=== PATIENT | male | born 1980 | race Caucasian/White ===

== ENCOUNTER 2016-11-17 21:20 | Emergency (ER) | payer SELFPAY ==
[2016-11-17] MEDS ORDERED: Ondansetron INJ* 2 MG/ML VIAL IV ONE ×2 (22:01→23:59)
[2016-11-17] MEDS ORDERED: NS 0.9% 1000 ML* 2,000 ML IV ONE (22:01)
[2016-11-17] MEDS ORDERED: NS 0.9% 1000 ML* 1,000 ML IV SCH (22:15)
[2016-11-17 22:34] VITALS: BP 139/97
[2016-11-17 22:41] LABS: Hematocrit 51 % (42-52); Hemoglobin 17.6 g/dl (14.0-18.0); Mean Corpuscular HGB Conc 35 g/dl (31-36); Mean Corpuscular Hemoglobin 30 pg (27-31); Mean Corpuscular Volume 88 fL (80-94); Mean Platelet Volume 8 um3 (7.4-10.4); Red Blood Count 5.82 10^6/ul (4.0-5.4); Red Cell Distribution Width 13 % (10.5-15); White Blood Count 12.3 10^3/ul (3.5-10.8)
[2016-11-17 22:54] LABS: ALT 52 U/L (7-52); AST 116 U/L (13-39); Albumin 5.2 g/dL (3.2-5.2); Alkaline Phosphatase 75 U/L (34-104); Anion Gap 16 mmol/L (2-11); BUN/Creatinine Ratio 35.7 (8-20); Blood Urea Nitrogen 41 mg/dL (6-24); CO2 Carbon Dioxide 22 mmol/L (22-32); Calcium 10.9 mg/dL (8.6-10.3); Chloride 94 mmol/L (101-111); EGFR Non-African American 71.6 (>60); Globulin 4.2 g/dL (2-4); Glucose 143 mg/dL (70-100); Lipase < 10 U/L (11.0-82.0); Potassium 4.1 mmol/L (3.5-5.0); Sodium 132 mmol/L (133-145); Total Protein 9.4 g/dL (6.4-8.9)
[2016-11-17 22:56] LABS: Troponin I 0.01 ng/mL (<0.04)
[2016-11-17] MEDS ORDERED: Iohexol 300* (CONTRAST) 10 ML SDV IV ONE (22:56)
[2016-11-18] MEDS ORDERED: Pantoprazole TAB (NF) 40 MG TAB PO ONE (00:36)
[2016-11-18] MEDS ORDERED: Omeprazole CAP* 20 MG PO ONE ×2 (01:05→02:00)
--- NOTE | 2016-11-18 07:39 | RAD ---
INDICATION: Chest and abdominal pain none COMPARISON: None TECHNIQUE: PA and lateral dual-energy views were obtained. FINDINGS: Bones/Soft Tissues: There are no acute bony findings. There is kyphosis Cardiomediastinal: The cardiomediastinal silhouette is normal. Lungs: There are no infiltrates. Pleura: There are no pleural effusions. Other: None IMPRESSION: NO ACTIVE DISEASE.
--- NOTE | 2016-11-18 07:49 | RAD ---
INDICATION: Abdominal pain. Nausea and vomiting COMPARISON: None TECHNIQUE: Axial source images were obtained from the hemidiaphragms to the symphysis pubis following administration of oral and intravenous contrast. 92 mL Omnipaque 300 was utilized. Coronal and sagittal reconstructed images were acquired. Lung bases: The lung bases are clear. Liver: The liver is normal in size. There are no masses. There is no ductal dilatation. Gallbladder: There are no calcified gallstones. There is no evidence of wall thickening or pericholecystic fluid. Spleen: The spleen is normal in size. There are no masses. Pancreas: There is no focal pancreatic mass or ductal dilatation. Adrenal glands: There is no evidence of adrenal mass. Kidneys: The kidneys are normal in size and position. There are prompt nephrograms and there is prompt excretion bilaterally. There are no renal parenchymal masses. There is no evidence of nephrolithiasis. Adenopathy: There is no evidence of adenopathy by size criteria. Fluid collections: There are no free or localized fluid collections. Vessels:There are no significant atherosclerotic changes involving the aorta. There is no focal aneurysm. The iliac vessels are normal in caliber. The IVC appears normal. GI tract: There are no acute CT bowel findings. There is no obstruction. The stomach and small bowel appear normal. The lower GI tract is normal. The cecum, ileocecal valve, and terminal ileum appear normal. The appendix is visualized and appear normal. Pelvic organs: The prostate and seminal vesicles appear normal Bladder: There are no bladder masses. Abdominal and pelvic soft tissues: The extraperitoneal abdominal and pelvic soft tissues appear normal.. Osseous structures: There are no acute osseous findings. Other: None IMPRESSION: NO ACUTE CT FINDINGS. NO MASS OR INFLAMMATORY CHANGES
--- NOTE | 2016-11-26 12:59 | ED ---
Caesar Anderson Alfonso, scribed for Darrian Koch on 11/17/16 at 2220 . Complex/Multi-Sys Presentation - HPI Summary HPI Summary: This patient is a 36 year old M presenting to [facility] accompanied by a female with a chief complaint of vomiting since 1200 today. The patient rates the pain 4/10 in severity. Symptoms aggravated and alleviated by nothing. Patient reports abdominal pain (secondary to vomiting), and nausea. Patient denies diarrhea. He denies eating anything unusual recently. He denies any PMHx. - History Of Current Complaint Chief Complaint: EDNauseaVomitDiarrh Time Seen by Provider: 11/17/16 21:37 Hx Obtained From: Patient Onset/Duration: Sudden Onset, Lasting Hours - since 1200 today, Still Present Timing: Constant Severity Currently: Moderate Severity Initially: Moderate Aggravating Factor(s): Nothing Alleviating Factor(s): Nothing Associated Signs And Symptoms: Positive: Other - Patient reports abdominal pain (secondary to vomiting), and nausea. Patient denies diarrhea. - Allergies/Home Medications Allergies/Adverse Reactions: Allergies Allergy/AdvReac Type Severity Reaction Status Date / Time No Known Allergies Allergy Verified 11/17/16 21:34 PMH/Surg Hx/FS Hx/Imm Hx Sensory History: Denies: Hx Deafness Opthamlomology History: Denies: Hx Legally Blind Infectious Disease History: No Infectious Disease History: Denies: Traveled Outside the [place] in Last 30 Days - Family History Known Family History: Negative: Cardiac Disease - Social History Alcohol Use: Occasionally Substance Use Type: Reports: Marijuana Smoking Status (MU): Current Every Day Smoker Review of Systems Negative: Fever Positive: Abdominal Pain - secondary to vomiting, Vomiting, Nausea. Negative: Diarrhea All Other Systems Reviewed And Are Negative: Yes Physical Exam Triage Information Reviewed: Yes Vital Signs On Initial Exam: Initial Vitals Temp Pulse Resp BP Pulse Ox 96.5 F 90 18 147/97 100 11/17/16 21:31 11/17/16 21:31 11/17/16 21:31 11/17/16 21:31 11/17/16 21:31 Vital Signs Reviewed: Yes Appearance: Positive: Well-Appearing, No Pain Distress Skin: Positive: Warm, Skin Color Reflects Adequate Perfusion, Dry Head/Face: Positive: Normal Head/Face Inspection Eyes: Positive: EOMI, PANDA ENT: Positive: Other - Dry oral mucosa Neck: Positive: Supple, Nontender Respiratory/Lung Sounds: Positive: Clear to Auscultation, Breath Sounds Present Cardiovascular: Positive: RRR, Pulses are Symmetrical in both Upper and Lower Extremities Abdomen Description: Positive: Soft, Other: - RLQ tenderness Bowel Sounds: Positive: Present Musculoskeletal: Positive: Normal, Strength/ROM Intact Neurological: Positive: Normal, Sensory/Motor Intact, Alert, Oriented to Person Place, Time - Deepti Coma Scale Coma Scale Total: 15 Diagnostics - Vital Signs Vital Signs Temp Pulse Resp BP Pulse Ox 11/17/16 21:33 96.5 F 90 18 147/97 100 11/17/16 21:31 96.5 F 90 18 147/97 100 - Laboratory Result Diagrams: 11/17/16 22:30 11/17/16 22:30 Lab Statement: Any lab studies that have been ordered have been reviewed, and results considered in the medical decision making process. - Radiology CXR Radiology Interpretation Completed By: ED Physician - negative exam - CT A/P CT Interpretation Completed By: Radiologist - no acute abdomen. - EKG 6 Cardiac Rate: NL - BPM 63 EKG Rhythm: Sinus Rhythm EKG Interpretation: NAC Complex Multi-Symp Course/Dx Assessment/Plan: This patient is a 36 year old M presenting to [facility] accompanied by a female with a chief complaint of vomiting since 1200 today. The patient rates the pain 4/10 in severity. Symptoms aggravated and alleviated by nothing. Patient reports abdominal pain (secondary to vomiting), and nausea. Patient denies diarrhea. He denies eating anything unusual recently. He denies any PMHx. An EKG reveals NSR. CXR reveals a negative exam. CT A/P reveals no acute abdomen. Patient will be discharged with follow up from gastroenterology. The patient is agreeable with this plan. - Diagnoses Provider Diagnoses: Vomiting, Abdominal pain, Dehydration Discharge - Discharge Plan Condition: Stable Disposition: HOME Prescriptions: Ondansetron ODT TAB* [Zofran 4 MG Odt TAB*] 4 mg PO Q8H PRN #20 tab.odt PRN Reason: Vomiting Pantoprazole TAB (NF) [Protonix TAB (NF)] 40 mg PO DAILY 30 Days Patient Education Materials: Dehydration (ED), Acute Nausea and Vomiting (ED), Acute Abdominal Pain (ED) Referrals: [facility] [Outside] - 3 Days Davis Alejandro MD [Medical Doctor] - Additional Instructions: FOLLOW UP WITH A GASTEROENTEROLOGIST. The documentation as recorded by the Caesar mendez Alfonso accurately reflects the service I personally performed and the decisions made by Zee العلي Emmanuel.
== END 2016-11-18 01:08 | disposition home or self-care (01) ==
LOC: ED 21:20
DX: R11.2 Nausea with vomiting, unspecified (principal); R10.9 Unspecified abdominal pain; E86.0 Dehydration
CPT/HCPCS: 36415; 71020; 74177; 80053; 83690; 84484; 85025; 85610; 85730; 93005; 96374; 99283; A9270-GY; J2405; Q9967

== ENCOUNTER 2017-05-16 09:44 | Emergency (ER) | payer SELFPAY ==
[2017-05-16] MEDS ORDERED: oxyCODONE/Acetamin 5/325 MG* TAB PO ONE (10:02)
[2017-05-16] MEDS ORDERED: Ketorolac INJ* 30 MG/ML 1 ML VIAL IM ONE (10:02)
[2017-05-16] MEDS ORDERED: Cyclobenzaprine TAB* 10 MG PO ONE (10:02)
--- NOTE | 2017-05-16 10:30 | ED ---
Back Pain - HPI Summary HPI Summary: 36-year-old male presents with back pain today after fall. He states he slipped backwards and fell on his lower back. He admits to a head injury. He denies any loss of consciousness. He denies any nausea or vomiting. He denies any headache. He denies any change in vision. He denies any dizziness. He states that the pain radiates to his left leg. He denies any saddle anesthesia or loss of bowel or bladder. He hasn't taken anything for his pain. He has not tried to ambulate since. He denies any history of back pain. He denies any other pain. He denies any chest pain or SOB. He denies any neck pain. He denies any thoracic back pain. - History of Current Complaint Chief Complaint: EDBackInjuryPain Stated Complaint: FALL/BACK PAIN Time Seen by Provider: 05/16/17 09:48 Pain Intensity: 6 - Allergies/Home Medications Allergies/Adverse Reactions: Allergies Allergy/AdvReac Type Severity Reaction Status Date / Time No Known Allergies Allergy Verified 11/17/16 21:34 PMH/Surg Hx/FS Hx/Imm Hx Endocrine/Hematology History: Denies: Hx Diabetes Respiratory History: Denies: Hx Asthma Sensory History: Denies: Hx Legally Blind, Hx Deafness Opthamlomology History: Denies: Hx Legally Blind Infectious Disease History: No Infectious Disease History: Denies: Traveled Outside the in Last 30 Days - Family History Known Family History: Negative: Cardiac Disease - Social History Alcohol Use: Occasionally Substance Use Type: Reports: Marijuana Smoking Status (MU): Current Every Day Smoker Review of Systems Negative: Fever Negative: Chest Pain Negative: Shortness Of Breath Positive: Myalgia - back pain All Other Systems Reviewed And Are Negative: Yes Physical Exam Triage Information Reviewed: Yes Vital Signs On Initial Exam: Initial Vitals BP 127/78 05/16/17 09:58 Vital Signs Reviewed: Yes Appearance: Positive: Well-Appearing Skin: Positive: Warm, Dry Head/Face: Positive: Normal Head/Face Inspection Eyes: Positive: Normal, EOMI, PANDA, Conjunctiva Clear ENT: Positive: Normal ENT inspection, Pharynx normal, TMs normal Respiratory/Lung Sounds: Positive: Clear to Auscultation, Breath Sounds Present Cardiovascular: Positive: Normal, RRR Abdomen Description: Positive: Nontender, Soft Bowel Sounds: Positive: Present Musculoskeletal: Positive: Limited @ - back, Other Neurological: Positive: Sensory/Motor Intact, Alert, Oriented to Person Place, Time, CN Intact II-III Diagnostics - Vital Signs Vital Signs Temp Pulse Resp BP Pulse Ox 05/16/17 10:11 20 05/16/17 10:00 15 115/89 05/16/17 09:59 98.7 F 77 20 115/89 99 05/16/17 09:58 127/78 - Laboratory Lab Statement: Any lab studies that have been ordered have been reviewed, and results considered in the medical decision making process. Back Pain Course/Dx - Course Course Of Treatment: 36-year-old male presents with back pain today after fall. He states he slipped backwards and fell on his lower back. He admits to a head injury. He denies any loss of consciousness. He denies any nausea or vomiting. He denies any headache. He denies any change in vision. He denies any dizziness. He states that the pain radiates to his left leg. He denies any saddle anesthesia or loss of bowel or bladder. He hasn't taken anything for his pain. He has not tried to ambulate since. He denies any history of back pain. He denies any other pain. He denies any chest pain or SOB. He denies any neck pain. He denies any thoracic back pain. on exam tenderness lower back, neurovascular intact. normal neuro exam. CT lumbar no fracture. will treat with muscle relaxer and short course of pain medication. patient understand and agrees with plan. - Diagnoses Differential Diagnosis/HQI/PQRI: Positive: Fracture, Strain, Sprain Provider Diagnoses: Back pain Discharge - Discharge Plan Condition: Good Disposition: HOME Prescriptions: Cyclobenzaprine TAB* [Flexeril 10 MG TAB*] 10 mg PO TID PRN #15 tab PRN Reason: Pain oxyCODONE/Acetamin 5/325 MG* [Percocet 5/325 TAB*] 1 tab PO Q6H PRN #8 tab MDD 4 PRN Reason: Pain Patient Education Materials: Back Pain (ED) Forms: *Work Release Referrals: No Primary Care Phys,NOPCP [Primary Care Provider] - [facility] [place] Physical therapy,PT [Medical Doctor] - Additional Instructions: Take muscle relaxers three times a day Use ibuprofen or Tylenol for pain every 6 hours, use narcotic for break through pain ice/heat area, move as much as possible Follow up with primary within 5 days Return to ED if develop any new or worsening symptoms
--- NOTE | 2017-05-16 11:20 | RAD ---
Indication: Back pain. CT of the lumbar spine was obtained in the axial plane. Sagittal and coronal reconstructed images were obtained. Vertebral bodies appear normal in height. No compression fracture is noted. At L5-S1, there is broad-based protrusion flattening the thecal sac. No central or foraminal stenosis is noted. At L4-5, there is degenerative disc disease noted. No focal protrusion is noted. No central or foraminal stenosis is noted. At L3-4, L2-3 and L1-2, no focal protrusion is identified. Transverse processes are unremarkable. IMPRESSION: At L5-S1, there is broad-based protrusion flattening the thecal sac. No fracture is identified.
[2017-05-16 11:57] VITALS: BP 112/82
[2017-05-16 13:10] LABS: Urine Appearance Clear; Urine Blood Negative (Negative); Urine Color Yellow; Urine Ketones Negative (Negative); Urine Protein Negative (Negative); Urine Specific Gravity 1.004 (1.010-1.030); Urine Urobilinogen Negative (Negative)
== END 2017-05-16 11:56 | disposition home or self-care (01) ==
LOC: ED 09:44
DX: M54.9 Dorsalgia, unspecified (principal); W01.0XXA Fall on same level from slipping, tripping and stumbling without subsequent striking against object, initial encounter; Y92.9 Unspecified place or not applicable; M51.27 Other intervertebral disc displacement, lumbosacral region; F17.200 Nicotine dependence, unspecified, uncomplicated
CPT/HCPCS: 72131; 81003; 96372; 99283; A9270-GY; J1885

== ENCOUNTER 2018-06-09 15:58 | Emergency (ER) | payer BC ==
[2018-06-09] MEDS ORDERED: Tetracaine 0.5% OPTH.SOL 15ML* BTL LEFT EYE ONE (16:41)
[2018-06-09] MEDS ORDERED: Tetracaine 0.5% OPTH.SOL 4 ML* 1 DROP BTL ONE (17:01)
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
[2018-06-09] MEDS ORDERED: Fluorescein Sodium TOPICAL* 1 MG TEST STRIP ONE (17:24)
[2018-06-09 18:51] VITALS: BP 136/78
[2018-06-09] MEDS ORDERED: Ibuprofen TAB* 800 MG PO ONE (18:53)
== END 2018-06-09 18:51 | disposition home or self-care (01) ==
LOC: ED 15:58
DX: T65.891A Toxic effect of other specified substances, accidental (unintentional), initial encounter (principal); Y92.9 Unspecified place or not applicable; H92.02 Otalgia, left ear; Z57.5 Occupational exposure to toxic agents in other industries; F17.210 Nicotine dependence, cigarettes, uncomplicated
CPT/HCPCS: 99282; A9270-GY

== ENCOUNTER 2018-08-06 09:07 | Emergency (ER) | payer SELFPAY ==
[2018-08-06 09:50] LABS: ABS Basophils 0.1 10^3/ul (0-0.2); ABS Eosinophils 0.3 10^3/ul (0-0.6); ABS Lymphocytes 2.6 10^3/ul (1.0-4.8); ABS Monocytes 0.6 10^3/ul (0-0.8); Eosinophil % 3.5 %; Hematocrit 42 % (42-52); Hemoglobin 14.5 g/dL (14.0-18.0); Lymphocyte % 26.6 %; Mean Corpuscular HGB Conc 35 g/dL (31-36); Mean Corpuscular Hemoglobin 31 pg (27-31); Mean Corpuscular Volume 91 fL (80-94); Mean Platelet Volume 7.7 fL (7.4-10.4); Platelet Count 185 10^3/uL (150-450); Red Blood Count 4.63 10^6 /uL (4.18-5.48); Red Cell Distribution Width 15 % (10.5-15); White Blood Count 9.7 10^3/uL (3.5-10.8)
[2018-08-06] MEDS ORDERED: Ketorolac INJ* 30 MG/ML 1 ML VIAL IV PUSH ONE (09:58)
--- NOTE | 2018-08-06 09:58 | ED ---
HPI Chest Pain - HPI Summary HPI Summary: Pt is a 38 y/o male who presents to the ED c/o CP. 3 days ago he began to have CP, which is made worse with deep breaths and heavy lifting. Pt does a lot of heavy lifting at work so thinks it may be a pulled muscle. The pain somewhat resolved two days ago, however yesterday around 20:00 the pain returned and has since been constant. Pt notes a mild cough, but denies any fever, chills, congestion, or rhinorrhea. Pain is rated an 8/10 in severity and is described as heaviness. He is a heavy smoker and uses marijuana. Pt denies any cardiac hx , or blood clots. His grandfather from an [place] at 42 y/o. - History of Current Complaint Chief Complaint: EDChestPainROMI Time Seen by Provider: 08/06/18 09:31 Hx Obtained From: Patient Onset/Duration: Started Days Ago - 3, Still Present Timing: Constant Current Severity: Severe Pain Intensity: 8 Pain Scale Used: 0-10 Numeric Character: Heaviness Aggravating Factor(s): Exertion - heavy lifting, Deep Breaths Associated Signs and Symptoms: Positive: Chest Pain, Cough. Negative: Fever, Chills, Nasal Congestion - Allergy/Home Medications Allergies/Adverse Reactions: Allergies Allergy/AdvReac Type Severity Reaction Status Date / Time No Known Allergies Allergy Verified 06/09/18 16:33 PMH/Surg Hx/FS Hx/Imm Hx Endocrine/Hematology History: Denies: Hx Diabetes Respiratory History: Denies: Hx Asthma Sensory History: Denies: Hx Legally Blind, Hx Deafness Opthamlomology History: Denies: Hx Legally Blind - Surgical History Surgery Procedure, Year, and Place: None Infectious Disease History: No Infectious Disease History: Denies: Traveled Outside the [place] in Last 30 Days - Family History Known Family History: Positive: Cardiac Disease - [place] - grandfather 42 y/o, Other - Father has pancreatic cancer - Social History Alcohol Use: Occasionally Hx Substance Use: Yes Substance Use Type: Reports: Marijuana Hx Tobacco Use: Yes Smoking Status (MU): Heavy Every Day Tobacco Smoker Review of Systems Negative: Fever, Chills Negative: Nasal Discharge, Other - congestion Positive: Chest Pain Positive: Cough - mild All Other Systems Reviewed And Are Negative: Yes Physical Exam - Summary Physical Exam Summary: GENERAL: Patient is a well-developed and nourished M who is lying comfortable in the stretcher. Patient is not in any acute respiratory distress. HEAD AND FACE: Normocephalic EYES: PERRLA, EOMI x 2. EARS: Hearing grossly intact. MOUTH: Oropharynx within normal limits. NECK: Supple, trachea is midline, no adenopathy, no JVD, no carotid bruit. CHEST: Symmetric, no tenderness at palpation LUNGS: Clear to auscultation bilaterally. No wheezing or crackles. CVS: Regular rate and rhythm, S1 and S2 present, no murmurs or gallops appreciated. ABDOMEN: Soft. Tenderness to palpation of left lateral rib area. Bowel sounds are normal. No abnormal abdominal pulsations. EXTREMITIES: Full ROM in all major joints, no edema, no cyanosis or clubbing. NEURO: Alert and oriented x 3. No acute neurological deficits. Speech is normal and follows commands. SKIN: Dry and warm Triage Information Reviewed: Yes Vital Signs On Initial Exam: Initial Vitals Temp Pulse Resp BP Pulse Ox 99.3 F 90 14 137/87 100 08/06/18 09:10 08/06/18 09:10 08/06/18 09:10 08/06/18 09:10 08/06/18 09:10 Vital Signs Reviewed: Yes Diagnostics - Vital Signs Vital Signs Temp Pulse Resp BP Pulse Ox 08/06/18 09:35 100 08/06/18 09:27 80 20 08/06/18 09:25 80 140/88 100 08/06/18 09:20 26 08/06/18 09:10 99.3 F 90 14 137/87 100 - Laboratory Lab Results: Lab Results 08/06/18 Range/Units 09:36 WBC 9.7 (3.5-10.8) 10^3/uL RBC 4.63 (4.18-5.48) 10^6 /uL Hgb 14.5 (14.0-18.0) g/dL Hct 42 (42-52) % MCV 91 (80-94) fL MCH 31 (27-31) pg MCHC 35 (31-36) g/dL RDW 15 (10.5-15) % Plt Count 185 (150-450) 10^3/uL MPV 7.7 (7.4-10.4) fL Neut % (Auto) 62.0 % Lymph % (Auto) 26.6 % Haines % (Auto) 6.7 % Eos % (Auto) 3.5 % Baso % (Auto) 1.2 % Absolute Neuts (auto) 6.0 (1.5-7.7) 10^3/ul Absolute Lymphs (auto) 2.6 (1.0-4.8) 10^3/ul Absolute Monos (auto) 0.6 (0-0.8) 10^3/ul Absolute Eos (auto) 0.3 (0-0.6) 10^3/ul Absolute Basos (auto) 0.1 (0-0.2) 10^3/ul Absolute Nucleated RBC 0.0 10^3/ul Nucleated RBC % 0.0 Result Diagrams: 08/06/18 09:36 08/06/18 09:36 Lab Statement: Any lab studies that have been ordered have been reviewed, and results considered in the medical decision making process. - Radiology CXR Radiology Interpretation Completed By: Radiologist Summary of Radiographic Findings: 1 CM PLEURAL-BASED NODULE OF THE LEFT MIDLUNG. RECOMMEND CONSIDERATION OF FURTHER EVALUATION WITH CONTRAST-ENHANCED CT OF THE CHEST. ED physician reviewed radiology report. - CT Chest CT CT Interpretation Completed By: Radiologist Summary of CT Findings: MULTIPLE PULMONARY PARENCHYMAL NODULES INCLUDING A PLEURAL-BASED NODULE ON THE LEFT MEASURING UP TO 1 CM IN SIZE CORRESPONDING TO THE RADIOGRAPHIC ABNORMALITY. THE. RECOMMENDATIONS FOR FOLLOWUP AND MANAGEMENT OF AN INCIDENTALLY DETECTED PULMONARY NODULE GREATER THAN 8 MM IN SIZE, IN A PATIENT WITHOUT A HISTORY OF MALIGNANCY, INCLUDE FOLLOWUP CT AT 3 MONTHS, PET-CT , AND/OR BIOPSY. NOTES: SIZE = AVERAGE LENGTH AND WIDTH; HIGH RISK IS DEFINED A HISTORY OF SMOKING OR OTHER KNOW RISK FACTORS FOR LUNG CANCER; LOW RISK IS DEFINED MINIMAL OR ABSENT HISTORY OF SMOKING OR OTHER KNOWN RISK FACTORS. ED physician reviewed radiology report. - EKG 9:23 Cardiac Rate: NL - 77 bpm EKG Rhythm: Sinus Rhythm EKG Comparison: No Significant Change - similar to EKG in 2017 Summary of EKG Findings: Diffuse ST elevation, minimal TX depression Re-Evaluation - Re-Evaluation First Eval Re-Evaluation Time: 11:31 Change: Improved Comment: Pt feels better. Chest Pain Course/Dx - Course Course Of Treatment: Pt is a 38 y/o male who presents to the ED c/o CP and mild cough. He is a heavy smoker. His grandfather from an [place] at 42 y/o. A physical exam revealed Tenderness to palpation of left lateral rib area. An EKG revealed diffuse ST elevation, minimal TX depression. A CXR revealed 1 CM PLEURAL-BASED NODULE OF THE LEFT MIDLUNG. RECOMMEND CONSIDERATION OF FURTHER EVALUATION WITH CONTRAST-ENHANCED CT OF THE CHEST. A chest CT revealed MULTIPLE PULMONARY PARENCHYMAL NODULES INCLUDING A PLEURAL-BASED NODULE ON THE LEFT MEASURING UP TO 1 CM IN SIZE CORRESPONDING TO THE RADIOGRAPHIC ABNORMALITY. THE. RECOMMENDATIONS FOR FOLLOWUP AND MANAGEMENT OF AN INCIDENTALLY DETECTED PULMONARY NODULE GREATER THAN 8 MM IN SIZE, IN A PATIENT WITHOUT A HISTORY OF MALIGNANCY, INCLUDE FOLLOWUP CT AT 3 MONTHS, PET-CT, AND/OR BIOPSY. NOTES: SIZE = AVERAGE LENGTH AND WIDTH; HIGH RISK IS DEFINED A HISTORY OF SMOKING OR OTHER KNOW RISK FACTORS FOR LUNG CANCER; LOW RISK IS DEFINED MINIMAL OR ABSENT HISTORY OF SMOKING OR OTHER KNOWN RISK FACTORS. In the course pt was given Toradol, which relieved his pain. Final dx of chest pain and pulmonary nodules. Discussed options for follow up, including [facility] and cardiology. I discussed results with patient, and he reports feeling better. He is hemodynamically stable and safe for discharge. Strict return precautions given and he will otherwise follow up with his PCP. - Diagnoses Provider Diagnoses: Chest pain, Pulmonary nodules Discharge - Sign-Out/Discharge Documenting (check all that apply): Patient Departure - Discharge Patient Received Moderate/Deep Sedation with Procedure: No - Discharge Plan Condition: Stable Disposition: HOME Patient Education Materials: Chest Pain (ED), Pulmonary Nodules (ED) Forms: *Work Release Referrals: [facility] [Outside] [facility] [Outside] (1-3 days) Wyatt Foster MD [Medical Doctor] - Additional Instructions: RETURN TO THE EMERGENCY DEPARTMENT FOR CHANGING OR WORSENING SYMPTOMS. - Billing Disposition and Condition Condition: STABLE Disposition: Home - Attestation Statements Document Initiated by Jesseeibe: Yes Documenting Scribe: Candy Teixeira Provider For Whom aMtt is Documenting (Include Credential): Jeanine Levy MD Scribe Attestation: Candy Anderson, scribed for Jeanine Levy MD on 08/07/18 at 0725. Scribe Documentation Reviewed: Yes Provider Attestation: The documentation as recorded by the Candy mendez Azari accurately reflects the service I personally performed and the decisions made by me, Jeanine Levy MD Status of Scribe Document: Viewed
[2018-08-06 09:59] LABS: Activated Partial Thrombo Time 32.5 seconds (26.0-36.3)
[2018-08-06 10:08] LABS: Albumin 4.1 g/dL (3.2-5.2); Albumin/Globulin Ratio 1.2 (1-3); BUN/Creatinine Ratio 15.3 (8-20); CRP High Sensitivity 11.99 mg/L (<2.00); Calcium 9.2 mg/dL (8.6-10.3); EGFR African American 147.1 (>60); EGFR Non-African American 121.5 (>60); Globulin 3.3 g/dL (2-4); Potassium 3.9 mmol/L (3.5-5.0); Total Bilirubin 0.3 mg/dL (0.2-1.0); Total Protein 7.4 g/dL (6.4-8.9)
[2018-08-06 10:11] LABS: CKMB ng/mL 4.6 ng/mL (0.6-6.3)
[2018-08-06] MEDS ORDERED: Iohexol 300* (CONTRAST) 10 ML SDV IV ONE (11:35)
[2018-08-06 12:47] VITALS: BP 129/81
== END 2018-08-06 12:47 | disposition home or self-care (01) ==
LOC: ED 09:07
DX: R07.9 Chest pain, unspecified (principal); R94.31 Abnormal electrocardiogram [ECG] [EKG]; R91.8 Other nonspecific abnormal finding of lung field; F17.210 Nicotine dependence, cigarettes, uncomplicated
CPT/HCPCS: 36415; 71046; 71260; 80053; 82553; 83605; 83880; 84484; 85025; 85379; 85610; 85730; 86141; 93005; 96374; 99283; J1885; Q9967